=== PATIENT | male | born 1960 | race Caucasian/White ===

== ENCOUNTER 2016-12-17 09:35 | Outpatient (CLI) ==
--- NOTE | 2016-12-17 10:03 | DI ---
EXAM: Radiographs, left foot HISTORY: Bilateral foot pain. COMPARISON: None available. TECHNIQUE: 2 views. FINDINGS: Bone mineralization is normal. There is no fracture or dislocation. The joint spaces ar e maintained. No erosive changes are seen. Tiny plantar calcaneal spur noted. No focal soft tissu e abnormality is seen. IMPRESSION: Tiny plantar calcaneal spur.
--- NOTE | 2016-12-17 10:05 | DI ---
EXAM: Radiographs, right foot HISTORY: Bilateral foot pain. COMPARISON: None available. TECHNIQUE: Two views. FINDINGS: Bone mineralization is normal. There is no fracture or dislocation. The joint spaces ar e maintained. No erosive changes are seen. There are tiny calcaneal spurs at the Achilles tendon i nsertion and plantar aponeurosis. Calcified structure posterior to the talus noted on the lateral v iew. No focal soft tissue abnormality is seen. IMPRESSION: 1. Tiny calcaneal spurs. 2. Os trigonum. Correlate for symptoms.
--- NOTE | 2016-12-17 10:05 | DI ---
EXAM: Chest two views CLINICAL INDICATION: Cough. COMPARISON: None available. FINDINGS: PA and lateral views of the thorax are provided. There are calcified bilateral pulmonary granulomas, consistent with old healed granulomatous disease . The remainder of the pulmonary parenchyma is clear and there is no pleural abnormality. There is a left-sided implanted cardiac device. The leads are intact. There is minimal thoracic vertebral degenerative changes. Otherwise, the cardiomediastinal silhouette and visualized bony structures ar e unremarkable. IMPRESSION: 1. No acute pulmonary abnormality. 2. Incidental evidence of old healed granulomatous disease. 3. Left-sided implanted cardiac device.
--- NOTE | 2016-12-17 10:06 | DI ---
EXAM: Left hand three-view HISTORY: Pain bilateral hands COMPARISON: None FINDINGS: Cortical irregularity posterior aspect base of the second distal phalanx may be degenerat katherin with nondisplaced fracture not excluded. Mild scattered osteoarthritic change throughout the pimentel nd. Well marginated ossification near the ulnar styloid, most consistent with old trauma. IMPERSSION: 1. Cortical irregularity posterior aspect base of the second distal phalanx may be degenerative with nondisplaced fracture not excluded. Recommend clinical correlation for point tenderness. 2. Mild osteoarthritis
--- NOTE | 2016-12-17 10:07 | DI ---
EXAM: Three views right hand. Clinical indication: Right hand pain. Bilateral hand pain. History of arthritis. FINDINGS: There is evidence of old healed right fifth metacarpal fracture. There are some small well corticat ed ossific bodies located immediately on the ulnar side of the right fifth MCP joint, invariably pos t-traumatic in nature. Otherwise, there are no fractures, dislocations or other significant bony ab normalities. There is no gross soft tissue abnormality. IMPRESSION: 1. Evidence of old healed right fifth metacarpal fracture. 2. Otherwise negative radiographs of the right hand.
[2016-12-17 10:47] LABS: HEMATOCRIT 43.8 % (42.0-52.0); HEMOGLOBIN 14.4 g/dl (14.0-18.0); MEAN CORPUSCULAR HEMOGLOBIN 26.8 pg (27.0-31.0); MEAN CORPUSCULAR HGB CONC 32.9 (31.8-35.4); MEAN CORPUSCULAR VOLUME 81.4 fl (80.0-94.0); RED BLOOD COUNT 5.38 10^6/ul (4.70-6.10); WHITE BLOOD COUNT 15.46 K/ul (4.2-10.2)
[2016-12-17 11:07] LABS: ALBUMIN 3.2 g/dL (3.4-5.0); ALBUMIN/GLOBULIN RATIO 0.8; ANION GAP 14.2; BILIRUBIN,TOTAL 0.49 mg/dL (0.00-1.20); BUN/CREATININE RATIO 13.82; CALCIUM 9.6 mg/dL (8.2-10.2); CREATININE 1.23 mg/dL (0.60-1.10); POTASSIUM 4.2 mmol/L (3.5-5.1); TOTAL PROTEIN 7.2 g/dL (6.4-8.2)
== END 2016-12-17 09:36 | disposition home or self-care (01) ==
LOC: RAD 09:35
PROVIDERS: ATTEND Internal Medicine Rheumatology
DX: M05.79 Rheumatoid arthritis with rheumatoid factor of multiple sites without organ or systems involvement (principal); Z76.89 Persons encountering health services in other specified circumstances
CPT/HCPCS: 36415; 80053; 85025; 85027

== ENCOUNTER 2017-02-23 09:05 | Outpatient (CLI) | END 2017-02-23 09:06 | disposition home or self-care (01) | LOC: LAB 09:05 | PROVIDERS: ATTEND Internal Medicine Rheumatology | DX: Z01.89 Encounter for other specified special examinations (principal) | CPT/HCPCS: 36415; 80074 ==

== ENCOUNTER 2017-08-16 09:01 | Outpatient (CLI) | payer OTHER ==
[2017-08-16 09:23] LABS: BASOPHILS # (AUTO) 0.1 K/uL (0-0.2); BASOPHILS % (AUTO) 0.9 % (0.0-3.0); EOSINOPHILS # (AUTO) 0.3 K/ul (0.0-0.7); EOSINOPHILS % (AUTO) 2.4 % (0.0-7.0); HEMATOCRIT 43.5 % (42.0-52.0); HEMOGLOBIN 14.6 g/dl (14.0-18.0); IMMATURE GRANULOCYTE % (AUTO) 0.5 % (0.0-5.0); LYMPHOCYTES # (AUTO) 3.7 K/uL (0.60-3.4); LYMPHOCYTES % (AUTO) 29.2 (10.0-50.0); MEAN CORPUSCULAR HGB CONC 33.6 (31.8-35.4); MEAN CORPUSCULAR VOLUME 89.3 fl (80.0-94.0); MONOCYTES # (AUTO) 1.3 K/uL (0.4-2.0); MONOCYTES % (AUTO) 10.5 (0-10); NEUTROPHILS # (AUTO) 7.2 K/ul (2.0-6.9); NEUTROPHILS % (AUTO) 56.5; PLATELET COUNT 351 10^3/uL (140-440); RED BLOOD COUNT 4.87 10^6/ul (4.70-6.10)
[2017-08-16 09:42] LABS: ALBUMIN/GLOBULIN RATIO 0.79; ANION GAP 13.9; BILIRUBIN,TOTAL 0.26 mg/dL (0.00-1.20); BUN/CREATININE RATIO 12.71; CALCIUM 9.7 mg/dL (8.2-10.2); CREATININE 1.18 mg/dL (0.60-1.10); POTASSIUM 3.9 mmol/L (3.5-5.1); TOTAL PROTEIN 6.8 g/dL (6.4-8.2)
== END 2017-08-16 09:02 | disposition home or self-care (01) ==
LOC: LAB 09:01
PROVIDERS: ATTEND Internal Medicine Rheumatology
DX: Z79.899 Other long term (current) drug therapy (principal)
CPT/HCPCS: 36415; 80053; 85025

== ENCOUNTER 2017-08-22 08:51 | Outpatient (CLI) | END 2017-08-22 08:52 | disposition home or self-care (01) | LOC: LAB 08:51 | PROVIDERS: ATTEND Internal Medicine Rheumatology | DX: Z79.899 Other long term (current) drug therapy (principal) | CPT/HCPCS: 36415 ==

== ENCOUNTER 2017-12-27 11:10 | Outpatient (CLI) | END 2017-12-27 11:11 | disposition home or self-care (01) | LOC: LAB 11:10 | PROVIDERS: ATTEND Internal Medicine Rheumatology | DX: Z79.899 Other long term (current) drug therapy (principal) | CPT/HCPCS: 36415; 86706 ==

== ENCOUNTER 2018-02-21 10:21 | Outpatient (CLI) | END 2018-02-21 10:22 | disposition home or self-care (01) | LOC: LAB 10:21 | PROVIDERS: ATTEND Internal Medicine Rheumatology | DX: Z79.899 Other long term (current) drug therapy (principal) | CPT/HCPCS: 36415; 80053; 85025 ==

== ENCOUNTER 2019-04-01 05:04 | Outpatient (CLI) | END 2019-04-01 05:19 | disposition short-term general hospital (02) | LOC: AMBL 05:04 | PROVIDERS: ATTEND Family Medicine | DX: M79.604 Pain in right leg (principal); R41.0 Disorientation, unspecified; R47.89 Other speech disturbances; R53.1 Weakness; R40.2421 Glasgow coma scale score 9-12, in the field [EMT or ambulance]; R40.4 Transient alteration of awareness ==